=== PATIENT | female | born 1965 | race Caucasian/White ===

== ENCOUNTER 2018-12-26 05:46 | Day surgery (SDC) | payer OTHER ==
[2018-12-26] MEDS ORDERED: FENTAnyl 50 MCG/ML VIAL (09:28)
[2018-12-26] MEDS ORDERED: MIDAZOLAM 1 MG/ML 2 ML INJ (09:28)
== END 2018-12-26 12:59 | disposition home or self-care (01) ==
LOC: GIL 05:46
DX: K21.9 Gastro-esophageal reflux disease without esophagitis (principal)
CPT/HCPCS: 43239; 88305; 88312